=== PATIENT | female | born 1945 | race Caucasian/White ===

== ENCOUNTER 2016-09-10 10:52 | Inpatient (IN) ==
[2016-09-10 12:36] LABS: MANUAL DIFF NEEDED? NO
[2016-09-10 12:40] LABS: BASO% 0.2 % (0.0-0.8); EOS# 0.17 X1000 (0.0-0.7); EOS% 1.8 % (0.0-10.0); HEMATOCRIT 31.2 % (37.0-47.0); IMM GRAN# 0.05 X1000 (0.0-0.04); IMM GRAN% 0.5 % (0.0-0.5); LYMPH# 4.01 X1000 (1.2-3.4); LYMPH% 42.1 % (20.5-51.1); MCH 30.7 PG (27-31); MCHC 32.1 g/dL (33-37); MCV 95.7 FL (81-99); MONO# 0.58 X1000 (0.11-0.59); MONO% 6.1 % (1.7-9.3); MPV 10.5 FL (7.4-10.4); NEUT% 49.3 % (42.2-75.2); PLT 219 X1000 (130-400); RBC 3.26 XMIL (4.2-5.4)
[2016-09-10] MEDS ORDERED: D50W SYRINGE IV PRN (12:47)
--- NOTE | 2016-09-10 12:50 | Diag Imaging Result Doc PS360 ---
EXAM: HEAD W/O CONTRAST HISTORY: Mental status change TECHNIQUE: CT of the head without contrast COMMENT: There are calcifications in both vertebral and internal carotid arteries. There are dense calcifications in the globus pallidus bilaterally. There are patchy lucencies in the or ventricular and subcortical white matter of both hemispheres. There are some calcifications in the cerebellar hemispheres. Compared to 03/12/2016 there has been no significant change in the appearance of the brain. There is hyperostosis frontalis interna. The visualized paranasal sinuses are clear. IMPRESSION: Chronic ischemic changes. No evidence of acute intracranial disease. Electronically signed by Aldo Vang 09/10/2016 12:47 PM
[2016-09-10 12:53] LABS: ALBUMIN 3.4 g/dL (3.5-5.0); CALCIUM 8.7 mg/dL (8.8-10.2); POTASSIUM 4.9 mmol/L (3.5-5.1); TOTAL BILIRUBIN 0.21 mg/dL (0.20-1.00); TOTAL PROTEIN 6.2 g/dL (6.3-8.3)
[2016-09-10 12:54] LABS: INR 3.21; PROTIME 36.3 Seconds (9.2-11.7)
[2016-09-10] MEDS: 1/2 NS 1,000 ML IV SCH (14:00)
[2016-09-10] MEDS: HUMULIN R SUBQ SCH ×2 (14:04→23:06)
--- NOTE | 2016-09-10 15:05 | Diag Imaging Result Doc PS360 ---
CHEST-2 VIEWS - 09/10/2016 INDICATION: Shortness of breath TECHNIQUE: COMPARISON: 03/12/2016 FINDINGS: Stable sternotomy wires. Heart and great vessels are grossly normal. At the posterior costophrenic angle visible only on the lateral view, there is some increased density. This is either soft tissue overlap or small infiltrate. IMPRESSION: Small infiltrate versus soft tissue overlap at the posterior costophrenic angle. Electronically signed by Rayray Archuleta 09/10/2016 3:03 PM
--- NOTE | 2016-09-10 15:30 | EKG Report ---
Test Performed on : 09/10/2016 3:04:06 PM Test Reason : Shortness of breath Blood Pressure : / mmHG Vent. Rate : 069 BPM Atrial Rate : 069 BPM P-R Int : 188 ms QRS Dur : 092 ms QT Int : 392 ms P-R-T Axes : 052 -15 023 degrees QTc Int : 420 ms Normal sinus rhythm. Normal ECG When compared with ECG of 28-JAN-2016 06:08, premature ventricular complexes. are no longer present Confirmed by Luther RATLIFF, Valentin Kilgore ([id number]) on 09/10/2016 9:08:01 PM
[2016-09-10] MEDS ORDERED: INSULIN PEN NEEDLES ONE (17:02)
--- NOTE | 2016-09-10 17:56 | HISTORY AND PHYSICAL ---
HISTORY OF PRESENT ILLNESS: Ms. Domingo, who is a 70-year-old, white female, was brought to the office today by her daughter because she has been staying unusually drowsy. She has been staying more confused. She lives by herself. She has been having some auditory hallucinations. Has been hearing some bells ringing all the time and she is seeing some persons. Hence, she is admitted for further management. PAST MEDICAL HISTORY: She has a known case of coronary artery disease, hypertension, chronic atrial fibrillation. She has a history of pulmonary embolism. Has been on Coumadin for a long time. Besides this, she has insulin-dependent diabetes and had degenerative disk disease in the lumbar spine and both knees. PAST SURGICAL HISTORY: Reveals history of a CABG performed on her. She also had a hysterectomy and cholecystectomy done. SUBSTANCE USE: She did smoke in the past. However, she drinks only socially. Used to drink only socially. ALLERGIES: She is not allergic to any medications. MEDICATIONS: Her medicines include aspirin 325 mg daily, Lexapro 20 mg daily, Lasix 40 mg daily, 60 units of Lantus insulin. Metformin 500 mg twice a day, metoprolol succinate 50 mg daily. Percocet 10 t.i.d. p.r.n., pravastatin 40 mg daily. Lyrica 75 mg b.i.d., ropinirole 2 mg at bedtime. Effexor 150 mg b.i.d., warfarin 4 mg tablet daily. REVIEW OF SYSTEMS: Patient does not offer any complaints. However, she is weak. She says she gets drowsy at times. Review of systems otherwise negative for chest pain or shortness of breath. PHYSICAL EXAMINATION: VITAL SIGNS: Reveal a temperature normal. Pulse 67 per minute, irregular. Respiratory rate 20 per minute, blood pressure 125/45. HEAD: Normocephalic. EYES: PERRLA. Fundus examination normal. NECK: Supple. JVP normal. ENT EXAMINATION: Unremarkable. LYMPHATIC/PERIPHERAL VASCULAR: There is no evidence of lymphadenopathy, thyroid enlargement, pedal edema, calf tenderness, anemia, cyanosis or clubbing. Pedal pulses felt. BREAST EXAM: Not done. CHEST: Reveals a midline scar from bypass surgery. LUNGS: Reveal occasional basal rales. CARDIOVASCULAR: PMI cannot be located. Heart sounds normal. No murmur, gallop or rub noted. ABDOMEN: Distended. Obese. Hernial orifices normal. Reveals the scars from previous surgery. No guarding, rigidity, free fluid, masses, or organomegaly. Bowel sounds normal. RECTAL: Deferred. PEST CONTROL PILOT: Higher functions: The patient is somewhat confused and disoriented. Cranial nerves normal. Motor and sensory system examination unremarkable. Deep tendon reflexes normal. Plantars downgoing. Skull and spine examination reveals painful movements of the lumbosacral spine. SLR positive. No cerebellar signs or signs of meningeal irritation. LOCOMOTOR EXAM/SKIN EXAM: Reveals painful movements of both knees. There is mild dehydration. CLINICAL IMPRESSION: 1. Dehydration. 2. Acute mental status change. PLAN: Plan to get neuro checks. Get a CT scan of the brain and continue the current management. cc: Aditya Alvarado MD
[2016-09-10 18:49] LABS: URINE MICRO REVIEW NEEDED? NO; URINE SOURCE CLEAN CATCH
[2016-09-10 18:55] LABS: BILIRUBIN URINE NEGATIVE (NEGATIVE); BLOOD URINE NEGATIVE (NEGATIVE); COLOR YELLOW; GLUCOSE URINE NEGATIVE (NEGATIVE); LEUKOCYTES URINE TRACE (NEGATIVE); NITRITE URINE NEGATIVE (NEGATIVE); PROTEIN URINE TRACE mg/dL (NEGATIVE); TURBIDITY URINE CLEAR (CLEAR); UR EPITHELIAL CELLS <10 /HPF (<10); URINE BACTERIA NEGATIVE /HPF; URINE CULTURE NEEDED? YES; URINE RBC <10 /HPF (<10); URINE WBC <10 /HPF (<10); UROBILINOGEN URINE NORMAL (NORMAL)
[2016-09-10] MEDS ORDERED: COUMADIN PO SCH (21:00)
[2016-09-10] MEDS ORDERED: PRAVACHOL PO SCH (21:00)
[2016-09-10] MEDS ORDERED: LYRICA PO SCH (21:00)
[2016-09-10] MEDS ORDERED: LANTUS SUBQ SCH (21:00)
[2016-09-10] MEDS: GLUCOPHAGE PO SCH (21:05)
[2016-09-10] MEDS: COUMADIN PO SCH (21:05)
[2016-09-10] MEDS: LYRICA PO SCH (21:05)
[2016-09-10] MEDS: PRAVACHOL PO SCH (21:05)
[2016-09-10] MEDS: EFFEXOR PO SCH (21:05)
[2016-09-10] MEDS: LANTUS SUBQ SCH (23:38)
[2016-09-10] MEDS: PERCOCET-10 PO PRN (23:39)
[2016-09-11] MEDS: HUMULIN R SUBQ SCH ×4 (01:44→21:05)
[2016-09-11] MEDS: 1/2 NS 1,000 ML IV SCH ×3 (01:45→21:05)
[2016-09-11 07:15] LABS: MANUAL DIFF NEEDED? NO
[2016-09-11 07:24] LABS: BASO% 0.2 % (0.0-0.8); EOS% 2.5 % (0.0-10.0); HEMATOCRIT 29.9 % (37.0-47.0); HEMOGLOBIN 9.4 g/dL (12.0-16.0); IMM GRAN# 0.03 X1000 (0.0-0.04); IMM GRAN% 0.4 % (0.0-0.5); LYMPH# 3.95 X1000 (1.2-3.4); LYMPH% 49.1 % (20.5-51.1); MCHC 31.4 g/dL (33-37); MCV 95.5 FL (81-99); MONO# 0.49 X1000 (0.11-0.59); MONO% 6.1 % (1.7-9.3); MPV 10.4 FL (7.4-10.4); NEUT% 41.7 % (42.2-75.2); PLT 214 X1000 (130-400); RBC 3.13 XMIL (4.2-5.4)
[2016-09-11 07:41] LABS: CALCIUM 8.2 mg/dL (8.8-10.2); POTASSIUM 4.7 mmol/L (3.5-5.1)
[2016-09-11 07:43] LABS: INR 2.97; PROTIME 33.4 Seconds (9.2-11.7)
[2016-09-11] MEDS: GLUCOPHAGE PO SCH ×2 (08:00→19:59)
[2016-09-11] MEDS: LEXAPRO PO SCH (08:00)
[2016-09-11] MEDS: ASPIRIN EC PO SCH (08:00)
[2016-09-11] MEDS: REQUIP PO SCH (08:00)
[2016-09-11] MEDS: LASIX PO SCH (08:00)
[2016-09-11] MEDS: TOPROL XL PO SCH (08:00)
[2016-09-11] MEDS: EFFEXOR PO SCH ×2 (08:03→20:00)
[2016-09-11] MEDS: LYRICA PO SCH ×2 (08:03→20:00)
[2016-09-11] MEDS ORDERED: TOPROL XL PO SCH (09:00)
[2016-09-11] MEDS ORDERED: LASIX PO SCH (09:00)
[2016-09-11] MEDS ORDERED: PERCOCET-10 PO SCH (09:00)
--- NOTE | 2016-09-11 09:47 | PROGRESS NOTE ---
DATE: 09/11/2016 SUBJECTIVE: Interval history was reviewed. Patient was admitted yesterday for altered mental status, deconditioning, chronic back pain, and dehydration. After IV fluids her mental status is better. Patient denies any complaints other than back pain, not able to walk. She lives with her daughter. REVIEW OF SYSTEMS: Denies any headache, vision problems.Cardiopulmonary: No chest pain, shortness of breath, PND, orthopnea. GI: No nausea, vomiting, abdominal pain. : No history of dysuria. Extremities: No swelling of feet. Musculoskeletal: Back pain. PAST MEDICAL HISTORY: Reviewed. MEDICATIONS: Reviewed. PHYSICAL EXAMINATION: Vital signs: Stable. Three liters L of nasal cannula 96 %. General Appearance: Heavyset. Not in respiratory distress. More lucid. HEENT: Within normal limits. Neck: Supple. No lymphadenopathy. Chest: Clear to auscultation. Heart: Sounds are regular. Abdomen: Belly is soft, obese. No signs of peritonitis. Extremities: No peripheral edema or cyanosis. Neurologic: No obvious focal deficits. INVESTIGATIONS: White cell count 8, hematocrit 29.9, platelets 214,000. PT 33 , INR 2.9. SMA 7: Sodium 135, potassium 4.7, chloride 100, BUN 40, creatinine 1.3, calcium 8.2. Urine cultures were negative. Urine microbiology: Urine cultures are pending. Radiology procedures: 1. CT head: Chronic ischemic changes. 2. Chest x-ray: Nothing acute. Sternotomy wires present. Questionable infiltrate. 3. EKG: Normal sinus, nothing acute. ASSESSMENT AND PLAN: 1. Altered mental status is improving, due to metabolic encephalopathy. 2. Type 2 diabetes. On Lantus 60 units at bedtime, metformin 500 p.o. b.i.d. Since creatinine is coming down we will continue metformin. 3. Chronic back pain. On Percocet. 4. Hyperlipidemia. On Pravachol. 5. Restless leg syndrome. On Mirapex. 6. Depression. On Lexapro 10 mg daily. 7. Anxiety/depression. Effexor 150 mg p.o. b.i.d. 8. Deconditioning. Inpatient physical therapy with assistance. 9. Coronary artery disease status post bypass surgery, stable. 10. History of pulmonary embolism, intermittent atrial fibrillation. On warfarin. INR is stable. LEVEL OF DOCUMENTATION: 35 minutes. cc: MD Aditya Zarate MD [facility]athryn
[2016-09-11] MEDS: COUMADIN PO SCH (19:59)
[2016-09-11] MEDS: PRAVACHOL PO SCH (19:59)
[2016-09-11] MEDS: LANTUS SUBQ SCH (20:01)
[2016-09-12] MEDS: PERCOCET-10 PO PRN ×2 (00:35→16:10)
[2016-09-12] MEDS: HUMULIN R SUBQ SCH ×4 (02:23→21:20)
[2016-09-12] MEDS: 1/2 NS 1,000 ML IV SCH (05:28)
[2016-09-12] MEDS: REQUIP PO SCH (08:06)
[2016-09-12] MEDS: LEXAPRO PO SCH (08:06)
[2016-09-12] MEDS: LASIX PO SCH (08:06)
[2016-09-12] MEDS: TOPROL XL PO SCH (08:06)
[2016-09-12] MEDS: EFFEXOR PO SCH ×2 (08:06→19:59)
[2016-09-12] MEDS: ASPIRIN EC PO SCH (08:07)
[2016-09-12] MEDS: GLUCOPHAGE PO SCH ×2 (08:11→19:59)
[2016-09-12] MEDS: LYRICA PO SCH ×2 (08:11→19:59)
--- NOTE | 2016-09-12 13:13 | PROGRESS NOTE ---
DATE: 09/12/2016 SUBJECTIVE: The patient complains of back pain. Mental status is improving. Eating very well. Still bedridden. Needs some assistance. REVIEW OF SYSTEMS: None reported. OBJECTIVE: Vital Signs: She is afebrile. Vitals are stable. 3L nasal cannula, AV set. HEENT: Within normal limits. Neck: Supple. No lymphadenopathy. Chest: Clear. Heart: Sounds are regular. Abdomen: Belly is soft, nontender. Good bowel sounds. No masses palpable. Neurologic: No obvious neurological deficits. LABORATORY: Urine cultures were negative. ASSESSMENT AND PLAN: 1. Altered mental status is improving. 2. Type 2 diabetes. Blood sugars running very well. Check the SMA-7 in the morning. 3. Chronic back pain, on Percocet. Continue present medical therapy. PLAN OF CARE: Check the CBC, SMA-7, PT/INR in the morning. Continue aggressive physical therapy. LEVEL OF DOCUMENTATION: Fifteen minutes. cc: MD Aditya Zarate MD
[2016-09-12] MEDS: PRAVACHOL PO SCH (19:59)
[2016-09-12] MEDS: LANTUS SUBQ SCH (19:59)
[2016-09-12] MEDS: COUMADIN PO SCH (19:59)
[2016-09-13] MEDS: HUMULIN R SUBQ SCH ×4 (02:17→20:00)
[2016-09-13] MEDS: 1/2 NS 1,000 ML IV SCH (04:17)
[2016-09-13 06:24] LABS: MANUAL DIFF NEEDED? NO
[2016-09-13 06:29] LABS: BASO% 0.4 % (0.0-0.8); EOS# 0.23 X1000 (0.0-0.7); EOS% 2.7 % (0.0-10.0); HEMATOCRIT 30.7 % (37.0-47.0); HEMOGLOBIN 9.7 g/dL (12.0-16.0); IMM GRAN# 0.06 X1000 (0.0-0.04); IMM GRAN% 0.7 % (0.0-0.5); LYMPH# 3.14 X1000 (1.2-3.4); LYMPH% 36.8 % (20.5-51.1); MCH 30.3 PG (27-31); MCHC 31.6 g/dL (33-37); MCV 95.9 FL (81-99); MONO# 0.75 X1000 (0.11-0.59); MONO% 8.8 % (1.7-9.3); MPV 10.7 FL (7.4-10.4); NEUT% 50.6 % (42.2-75.2); PLT 227 X1000 (130-400)
[2016-09-13 06:42] LABS: INR 2.29; PROTIME 25.4 Seconds (9.2-11.7)
[2016-09-13 06:47] LABS: CALCIUM 8.7 mg/dL (8.8-10.2); POTASSIUM 5.2 mmol/L (3.5-5.1)
--- NOTE | 2016-09-13 07:52 | PROGRESS NOTE ---
DATE: 09/13/2016 SUBJECTIVE: Followup. Patient stable, bedridden, not able to walk without assistance. REVIEW OF SYSTEMS: None reported. Eating very well. PHYSICAL EXAMINATION: Vital Signs: Afebrile. Pulse is 60, blood pressure is 113/44. 3 L nasal cannula 99%. HEENT: Within normal limits. Neck: Supple. No lymphadenopathy. No goiter. Chest: Clear. Heart: Sounds are regular. Abdomen: Belly is soft, obese. Extremities: No peripheral edema. No obvious deficits. INVESTIGATIONS: CBC: White cell count 8.5, hematocrit 30, platelet count 227,000. PT 25, INR 2.29. SMA-7: Sodium 140, potassium 5.2, BUN 53, creatinine 1.5. Urine cultures are negative. ASSESSMENT AND PLAN: 1. Altered mental status is improving. 2. Chronic pain due to back pain. Continue on Percocet, Lyrica. 3. Azotemia. Give IV hydration. 4. Paroxysmal atrial fibrillation, with deep venous thrombosis and pulmonary embolism, on Coumadin. INR is stable. 5. Diabetes. Continue on Lantus and metformin sliding scale. 6. Disposition: Hopefully, will go home tomorrow. Dr. Alvarado will make the arrangements. Continue present medical therapy. LEVEL OF DOCUMENTATION: 15 minutes. cc: MD Aditya Zarate MD
[2016-09-13] MEDS: PERCOCET-10 PO PRN ×2 (09:19→20:06)
[2016-09-13] MEDS: LASIX PO SCH (09:19)
[2016-09-13] MEDS: EFFEXOR PO SCH ×2 (09:19→20:01)
[2016-09-13] MEDS: LEXAPRO PO SCH (09:19)
[2016-09-13] MEDS: GLUCOPHAGE PO SCH ×2 (09:19→20:00)
[2016-09-13] MEDS: TOPROL XL PO SCH (09:19)
[2016-09-13] MEDS: ASPIRIN EC PO SCH (09:19)
[2016-09-13] MEDS: REQUIP PO SCH (09:19)
[2016-09-13] MEDS: LYRICA PO SCH ×2 (09:20→20:00)
[2016-09-13] MEDS: COUMADIN PO SCH (20:00)
[2016-09-13] MEDS: PRAVACHOL PO SCH (20:00)
[2016-09-13] MEDS: LANTUS SUBQ SCH (20:00)
[2016-09-14] MEDS: HUMULIN R SUBQ SCH ×4 (02:34→23:04)
[2016-09-14] MEDS: PERCOCET-10 PO PRN ×2 (05:00→14:34)
[2016-09-14] MEDS: 1/2 NS 1,000 ML IV SCH (08:23)
[2016-09-14] MEDS: LEXAPRO PO SCH (08:24)
[2016-09-14] MEDS: LASIX PO SCH (08:24)
[2016-09-14] MEDS: TOPROL XL PO SCH (08:24)
[2016-09-14] MEDS: REQUIP PO SCH (08:24)
[2016-09-14] MEDS: GLUCOPHAGE PO SCH ×2 (08:24→20:18)
[2016-09-14] MEDS: EFFEXOR PO SCH ×2 (08:25→20:18)
[2016-09-14] MEDS: LYRICA PO SCH ×2 (08:25→20:18)
[2016-09-14] MEDS: ASPIRIN EC PO SCH (08:25)
--- NOTE | 2016-09-14 09:47 | Diag Imaging Result Doc PS360 ---
EXAM: LUMBAR SPINE HISTORY: back pain. TECHNIQUE: Six views with obliques COMMENT: There is rotoscoliosis of the thoracolumbar spine with convexity to the left. There is degenerative disc disease throughout the visualized thoracic spine with vacuum disc phenomenon and particularly at the T12-L1, L1-2 and L2-3 levels with large osteophytes and vacuum disc phenomenon. There is no evidence of acute fracture or subluxation. The aorta is largely calcified and is not distended. The pedicles are intact. IMPRESSION: Scoliosis and severe degenerative disc disease at the thoracolumbar junction. Electronically signed by Aldo Vang 09/14/2016 9:45 AM
--- NOTE | 2016-09-14 10:03 | PROGRESS NOTE ---
DATE: 09/14/2016 Ms. Domingo is complaining of a lot of back pain radiating to the legs. She says she could not sleep last night. The patient is severe. There is some muscle spasm. We will get the lumbar spine x-ray on her today. -8 cc: Aditya Alvarado MD
[2016-09-14] MEDS ORDERED: INSULIN PEN NEEDLES ONE (16:07)
[2016-09-14] MEDS: COUMADIN PO SCH (20:18)
[2016-09-14] MEDS: PRAVACHOL PO SCH (20:18)
[2016-09-14] MEDS: LANTUS SUBQ SCH (20:19)
[2016-09-15] MEDS: PERCOCET-10 PO PRN (00:55)
[2016-09-15] MEDS: HUMULIN R SUBQ SCH ×3 (00:57→07:37)
[2016-09-15] MEDS: 1/2 NS 1,000 ML IV SCH (04:02)
[2016-09-15 07:31] VITALS: BP 98/50
[2016-09-15] MEDS: EFFEXOR PO SCH ×2 (07:37→08:03)
[2016-09-15] MEDS: LEXAPRO PO SCH ×2 (07:37→08:03)
[2016-09-15] MEDS: LYRICA PO SCH ×2 (07:37→08:03)
[2016-09-15] MEDS: GLUCOPHAGE PO SCH ×2 (07:37→08:03)
[2016-09-15] MEDS: ASPIRIN EC PO SCH ×2 (07:37→08:03)
[2016-09-15] MEDS: REQUIP PO SCH ×2 (07:38→08:03)
[2016-09-15] MEDS ORDERED: MISC. PHARMACY COMMUNICATION SCH (09:15)
--- NOTE | 2016-09-15 09:31 | PROGRESS NOTE ---
DATE: 09/15/2016 Ms. Domingo is doing better. She still has back pain. Her mental status has improved significantly. She does not hallucinate anymore. Clinically, dehydration is better. However, not improved. I personally feel like she has some renal failure. We will discharge her today upon her request. Her blood pressure is slightly low and Lopressor and has been held this morning. cc: Aditya Alvarado MD
--- NOTE | 2016-09-15 14:37 | DISCHARGE SUMMARY ---
ADMISSION DATE: 09/10/2016 DISCHARGE DATE: 09/15/2016 HISTORY OF PRESENT ILLNESS: Ms. Domingo is a 70-year-old white female who was admitted with an acute mental status change. It was thought she had urinary infection; however, the urine culture was negative. CT scan of the brain had revealed only chronic ischemic changes. No other abnormality was noted. Chest x-ray revealed the presence of a small infiltrate versus soft tissue overlap. She also had a lumbar spine x-ray, which revealed presence of severe degenerative disk disease in the upper lumbar spine area and severe kyphoscoliosis of the spine was noted. LABORATORY DATA: CBC was unremarkable except for anemia. INR was 2.29. Initial BUN was 41 and creatinine was 1.3, indicating the presence of renal failure as well as prerenal azotemia. Urinalysis was negative. Urine culture was negative. COURSE IN THE HOSPITAL: She was given IV fluids. Her mentation improved significantly. She was not hallucinating. She had a lot of back pain. She was given pain medication on a routine basis and we finally decided to discharge her today. FINAL DIAGNOSES: 1. Acute mental status change, possible metabolic encephalopathy due to dehydration and renal failure. 2. Severe back pain from degenerative disk disease. 3. History of pulmonary thromboembolism, coronary artery disease. No new prescriptions were written. cc: Aditya Alvarado MD
== END 2016-09-15 12:22 | disposition home or self-care (01) ==
LOC: 3N 10:52
PROVIDERS: ADMIT Internal Medicine; ATTEND Internal Medicine